=== PATIENT | female | born 1940 | race Caucasian/White ===

== ENCOUNTER 2017-06-23 10:37 | Outpatient (CLI) | payer MEDICARE ==
--- NOTE | 2017-06-23 13:32 | CT ---
CT ABDOMEN WITH AND WITHOUT IV CONTRAST: CT PELVIS WITH IV CONTRAST: HISTORY: Diarrhea. IBS. Pancreatic insufficiency. FINDINGS: The lung bases are unremarkable. The liver demonstrates decreased air attenuation, compared to the s pleen, consistent with fatty infiltration. There is a 12 mm hyperenhancing focus in the left lobe of the liver, which, in the absence of known malignancy, most likely represents a flash filling hemangi jose. Other possibilities include hypervascular primary or secondary neoplasms. No calcified gallstones are seen. The spleen, pancreas, adrenal glands, and left kidney are normal. A tiny, low density lesion in the right kidney is likely a cyst. No free air, free fluid, or lymphadenopathy is seen in the abdomen or pelvis. There are vascular taina cifications without evidence of aneurysmal dilatation of the abdominal aorta. The small bowel loops are not abnormally dilated. A uterus is present. There are degenerative changes in the spine. [place] diverticula are present. IMPRESSION: 1. A 12 mm hypervascular lesion in the liver, as discussed above. 2. Fatty liver. 3. Tiny right renal cyst. 4. Colonic diverticulosis. POS: [facility]
== END 2017-06-23 10:38 | disposition home or self-care (01) ==
LOC: SCSCT 10:37
PROVIDERS: ATTEND Internal Medicine Gastroenterology
DX: R19.7 Diarrhea, unspecified (principal); K76.9 Liver disease, unspecified; K76.0 Fatty (change of) liver, not elsewhere classified; K57.30 Diverticulosis of large intestine without perforation or abscess without bleeding
CPT/HCPCS: 74178; 82565

== ENCOUNTER 2017-06-23 14:30 | Emergency (ER) | payer MEDICARE | END 2017-06-23 15:26 | disposition home or self-care (01) | LOC: SCSER 14:30 | DX: M79.89 Other specified soft tissue disorders (principal); Z79.899 Other long term (current) drug therapy; Z79.82 Long term (current) use of aspirin; E05.90 Thyrotoxicosis, unspecified without thyrotoxic crisis or storm; G47.00 Insomnia, unspecified; R19.7 Diarrhea, unspecified; K76.9 Liver disease, unspecified; K76.0 Fatty (change of) liver, not elsewhere classified; K57.30 Diverticulosis of large intestine without perforation or abscess without bleeding | CPT/HCPCS: 74178; 82565; 99283 ==

== ENCOUNTER 2018-06-22 10:34 | Outpatient (CLI) | payer MEDICARE ==
--- NOTE | 2018-06-22 11:36 | MMO ---
Bilateral MAMMO Bilat Screen DDI+IRAJ. CLINICAL HISTORY: Patient is 77 years old and is seen for screening. The patient has the following family history of breast cancer: maternal aunt and cousin female. The patient has no personal history of cancer. VIEWS: The views performed were: bilateral craniocaudal with tomosynthesis and bilateral mediolateral oblique with tomosynthesis. FILMS COMPARED: The present examination has been compared to prior imaging studies performed at [facility] on 06/22/2017, and at [facility] on 05/26/2011, 05/26/2012, 05/27/2013, 05/29/2014, 06/06/2015 and 06/09/2016. MAMMOGRAM FINDINGS: There are scattered fibroglandular densities. There is a mass measuring 6 millimeters with spiculated margins seen in the CC view only seen in the upper-outer region of the left breast. In the right breast, there are no suspicious masses, calcifications or areas of architectural distortion. IMPRESSION: MASS IN THE LEFT BREAST REQUIRES ADDITIONAL EVALUATION. ADDITIONAL IMAGING. Recommend diagnostic mammography and focused breast ultrasound 3BTHE RESULTS OF THIS EXAM WERE SENT TO THE PATIENT.0B ACR BI-RADS Category 0 - Incomplete: Need additional imaging evaluation. [facility] [place] will notify the patient of the need for additional imaging services. MAMMOGRAPHY NOTE: 1. A negative mammogram report should not delay a biopsy if a dominant of clinically suspicious mass is present. 2. Approximately 10% to 15% of breast cancers are not detected by mammography. 3. Adenosis and dense breasts may obscure an underlying neoplasm.
== END 2018-06-22 10:35 | disposition home or self-care (01) ==
LOC: BICMAMMO 10:34
PROVIDERS: ATTEND Internal Medicine
DX: Z12.31 Encounter for screening mammogram for malignant neoplasm of breast (principal); Z80.3 Family history of malignant neoplasm of breast; N63.20 Unspecified lump in the left breast, unspecified quadrant
CPT/HCPCS: 77063; 77067

== ENCOUNTER 2018-07-26 14:03 | Outpatient (CLI) | payer MEDICARE ==
--- NOTE | 2018-07-26 14:57 | MMO ---
Left Breast MAMMO Unilat Diag DDI LT+IRAJ. CLINICAL HISTORY: Patient is 77 years old and is seen for diagnostic exam. The patient has the following family history of breast cancer: maternal aunt and cousin female. The patient has no personal history of cancer. VIEWS: The views performed were: left craniocaudal spot compression with tomosynthesis and left mediolateral with tomosynthesis. FILMS COMPARED: The present examination has been compared to prior imaging studies performed at [facility] on 06/22/2017, 06/22/2018 and 07/26/2018, and at [facility] on 06/06/2015 and 06/09/2016. MAMMOGRAM FINDINGS: There are scattered fibroglandular densities. There is a focal asymmetry measuring 5 millimeters seen in the upper-outer region of the left breast. IMPRESSION: FOCAL ASYMMETRY IN THE LEFT BREAST IS PROBABLY BENIGN. FOLLOW-UP IN 6 MONTHS IS RECOMMENDED. THE RESULTS OF THIS EXAM WERE SENT TO THE PATIENT. ACR BI-RADS Category 3 - Probably benign finding - short interval follow-up suggested. [facility] will notify the patient of the need for additional imaging services. MAMMOGRAPHY NOTE: 1. A negative mammogram report should not delay a biopsy if a dominant of clinically suspicious mass is present. 2. Approximately 10% to 15% of breast cancers are not detected by mammography. 3. Adenosis and dense breasts may obscure an underlying neoplasm.
--- NOTE | 2018-07-26 15:08 | ULT ---
LEFT BREAST ULTRASOUND: Date: 07/26/18 HISTORY: Focal asymmetry in the upper outer aspect of the left breast on screening mammography. COMPARISON: 07/26/18, 06/22/18. TECHNIQUE: Multiplanar Figueroa scale and color Doppler images were obtained in a targeted ultrasound of the upper o uter aspect of the left breast. FINDINGS: At the 12:30-1:00 position of the left breast, approximately 6-7 cm from the nipple, there is an area of shadowing without a central mass. This likely represents a tissue interface rather than a suspici ous mass and may correspond to the mammographic abnormality. No cyst identified. No solid mass seen. IMPRESSION: BIRADS Category 3 - Probably benign findings. A 6 month mammogram and ultrasound are recommended to e nsure stability. The facility will notify patient of need for additional imaging services. POS: [facility]
== END 2018-07-26 14:04 | disposition home or self-care (01) ==
LOC: BICMAMMO 14:03
PROVIDERS: ATTEND Internal Medicine
DX: N63.20 Unspecified lump in the left breast, unspecified quadrant (principal); R92.8 Other abnormal and inconclusive findings on diagnostic imaging of breast; N64.89 Other specified disorders of breast; Z80.3 Family history of malignant neoplasm of breast
CPT/HCPCS: 76642; 77065; G0279

== ENCOUNTER 2019-01-03 13:21 | Outpatient (CLI) | payer MEDICARE ==
--- NOTE | 2019-01-03 14:34 | MMO ---
Left Breast MAMMO Unilat Diag DDI LT+IRAJ. CLINICAL HISTORY: Patient is 78 years old and is seen for diagnostic exam. The patient has the following family history of breast cancer: maternal aunt and cousin female. The patient has a history of other cancer. VIEWS: The views performed were: left craniocaudal with tomosynthesis; left mediolateral oblique with tomosynthesis; and left mediolateral with tomosynthesis. FILMS COMPARED: The present examination has been compared to prior imaging studies performed at [facility] on 07/26/2018 and 01/03/2019. This study has been interpreted with the assistance of computer-aided detection. MAMMOGRAM FINDINGS: There are scattered fibroglandular densities. There is an equal density, irregular mass measuring 5 millimeters with spiculated margins seen in the left breast at 12 o'clock. IMPRESSION: MASS IN THE LEFT BREAST IS SUSPICIOUS. AN ULTRASOUND-GUIDED BREAST BIOPSY IS RECOMMENDED. RESULTS AND RECOMMENDATIONS DISCUSSED WITH THE PATIENT AND QUESTIONS ANSWERED. THE RESULTS OF THIS EXAM WERE SENT TO THE PATIENT. ACR BI-RADS Category 4 - Suspicious abnormality - biopsy should be considered MAMMOGRAPHY NOTE: 1. A negative mammogram report should not delay a biopsy if a dominant of clinically suspicious mass is present. 2. Approximately 10% to 15% of breast cancers are not detected by mammography. 3. Adenosis and dense breasts may obscure an underlying neoplasm. Reported by: RIZWANA DAS MD Electonically Signed: [id number]
--- NOTE | 2019-01-03 16:14 | ULT ---
LIMITED LEFT BREAST ULTRASOUND: 01/03/2019 PROVIDED CLINICAL HISTORY: Abnormal mammogram. FINDINGS: Limited sonographic interrogation of the left breast was performed at the 12 to 2 o'clock positions i n the region of mammographic concern. At the 12 o'clock position there is an angular, irregular, hypoechoic mass with posterior shadowing, measuring about 5 mm in greatest dimension. This corresponds with the mammographic finding. IMPRESSION: BI-RADS category 4 - suspicious abnormality. Ultrasound guided biopsy is recommended. Results and recommendations discussed with the patient and q uestions answered. POS: OFF
== END 2019-01-03 13:22 | disposition home or self-care (01) ==
LOC: BICMAMMO 13:21
PROVIDERS: ATTEND Internal Medicine
DX: R92.8 Other abnormal and inconclusive findings on diagnostic imaging of breast (principal); N63.22 Unspecified lump in the left breast, upper inner quadrant
CPT/HCPCS: 76642; 77065; G0279

== ENCOUNTER → 2019-01-14 | Day surgery (SDC) | payer MEDICARE ==
--- NOTE | 2019-01-14 15:10 | MMO ---
Left Breast MAMMO Unilat Diag DDI LT. CLINICAL HISTORY: Patient is 78 years old and is seen for diagnostic exam. The patient has the following family history of breast cancer: maternal aunt and cousin female. The patient has a history of other cancer. The patient has a history of left Ultrasound Guided Core Biopsy in January,. VIEWS: The views performed were: left craniocaudal and left mediolateral. FILMS COMPARED: The present examination has been compared to prior imaging studies performed at [facility] on 07/26/2018 and 01/03/2019. This study has been interpreted with the assistance of computer-aided detection. MAMMOGRAM FINDINGS: There is a biopsy clip seen in the left breast. IMPRESSION: BIOPSY CLIP IN THE LEFT BREAST IS CONFIRMED UTILIZING POST PROCEDURE MAMMOGRAM. THE RESULTS OF THIS EXAM WERE SENT TO THE PATIENT. MAMMOGRAPHY NOTE: 1. A negative mammogram report should not delay a biopsy if a dominant of clinically suspicious mass is present. 2. Approximately 10% to 15% of breast cancers are not detected by mammography. 3. Adenosis and dense breasts may obscure an underlying neoplasm. Reported by: ARLET SANTANA MD Electonically Signed: [id number]
--- NOTE | 2019-01-14 15:23 | ULT ---
US Breast Bx US Guided History: Breast mass Comparison: None. Findings: Patient was brought to the ultrasound suite. All questions were answered. Informed consent was obtained. Timeout performed. Patient's left breast was prepped and draped in normal sterile fashion. Using ultrasound guidance lef t breast mass at 1:00 was visualized. After adequate anesthesia, a total of (4) 14-gauge 18 mm cores were obtained. Patient tolerated the procedure well without complication. Clip was placed in adequate position on post clip mammography. Impression: Technically successful ultrasound-guided left breast mass biopsy.
== END ==
LOC: BICULT 13:09
PROVIDERS: ATTEND Internal Medicine
PROC: 0H9U3ZX Drainage of Left Breast, Percutaneous Approach, Diagnostic (ICD-10-PCS; principal; 2019-01-14)
DX: D05.12 Intraductal carcinoma in situ of left breast (principal)
CPT/HCPCS: 19083; 88305; 88341; 88342

== ENCOUNTER 2019-02-22 06:15 | Outpatient (CLI) | payer MEDICARE ==
[2019-02-22 12:28] LABS: #Basophils 0.1 thou/uL (0.0-0.2); #Eosinphils 0.1 thou/uL (0.0-0.7); #Lymphocytes 3.8 thou/uL (1.20-3.40); #Monocytes 0.8 thou/uL (0.11-0.59); %Basophils 1.3 % (0.0-1.0); %Eosinophils 0.8 % (0.0-10.0); %Lymphocytes 35.2 % (21.0-51.0); %Monocytes 7.2 % (0.0-10.0); %Neutrophils 55.5 % (42.0-75.0); Hemoglobin 13.8 g/dL (12.0-16.0); Mean Corpuscular HGB CONC 32.8 g/dL (32.0-36.0); Mean Corpuscular Hemoglobin 33.5 pg (27.0-31.0); Mean Platelet Volume 8.2 fL (7.4-10.4); Platelet Count 175 thou/uL (130-400); RBC Distribution Width 12.4 % (11.5-14.5); Red Blood Cell (RBC) Count 4.13 mill/uL (4.20-5.40); White Blood Cell (WBC) Count 10.8 thou/uL (4.8-10.8)
--- NOTE | 2019-02-22 12:38 | RAD ---
EXAM: Chest 2 views: HISTORY: Preoperative radiograph COMPARISON: None. FINDINGS: There is a normal-sized cardiomediastinal silhouette. There is no evidence of consolidation, mass, or pleural effusion. The bones are unremarkable. IMPRESSION: No evidence of acute cardiopulmonary disease
[2019-02-22 12:54] LABS: Anion Gap 11 mmol/L (10-20); BUN (Urea Nitrogen) 20 mg/dL (9.8-20.1); Calc. Creatinine Clearance 0 mL/min (70-130); Calcium 9.4 mg/dL (7.8-10.44); Carbon Dioxide 31 mmol/L (23-31); Chloride 103 mmol/L (98-107); Estimated GFR-MDRD 65; Glucose 118 mg/dL (83-110); Potassium 3.5 mmol/L (3.5-5.1); Sodium 141 mmol/L (136-145)
== END 2019-02-22 06:16 | disposition home or self-care (01) ==
LOC: LABBT 06:15
PROVIDERS: ATTEND Specialist
DX: Z01.818 Encounter for other preprocedural examination (principal); C50.412 Malignant neoplasm of upper-outer quadrant of left female breast
CPT/HCPCS: 71046; 80048; 85025; 93005; 93010

== ENCOUNTER 2019-03-01 06:35 | Day surgery (SDC) | payer MEDICARE ==
[2019-02-22 11:39] VITALS: BMI 27.8
--- NOTE | 2019-03-01 09:20 | MMO ---
Needle localization left breast mass mammographic guided HISTORY: Left breast cancer. FINDINGS: After explaining the procedure and answering all questions, the localization clip and mass at the superior aspect of left breast was again visualized. Sterile technique, buffered local anesthesia, mammographic guidance, and a superior approach were used to carefully advance a 19-gauge Franklin needle and wire to the posterior margin of the mass containing the localization clip. The center of the mass lies approximately 1.9 cm from the tip of the needle. Position confirmed with mammography. Patient tolerated the procedure well and was transferred to day surgery in good condition. IMPRESSION: Technically successful needle localization left breast mass.
[2019-03-01] MEDS ORDERED: Dexamethasone 20 MG/5 ML VIAL ONE (10:33)
[2019-03-01] MEDS ORDERED: ePHEDrine/0.9% NaCl/PF SYRINGE 50 mg/10 ml ONE (10:33)
[2019-03-01] MEDS ORDERED: Lidocaine 1% PF 5 ML VIAL ONE (10:33)
[2019-03-01] MEDS ORDERED: PROPOFOL 200 MG/20 ML VIAL ONE (10:33)
[2019-03-01] MEDS ORDERED: Ondansetron PF 4 MG/2 ML Vial ONE (10:33)
[2019-03-01] MEDS ORDERED: Bupivacaine 0.25% HCL 30 ML VIAL ONE (11:49)
[2019-03-01] MEDS ORDERED: Lidocaine 1% w/Epinephrine 1:100K 20 ML VIAL ONE (11:49)
[2019-03-01] MEDS ORDERED: Isosulfan Blue 50 MG/5 ML VIAL ONE (11:58)
[2019-03-01] MEDS ORDERED: Fentanyl 100 MCG/2 ML VIAL ONE (12:36)
[2019-03-01] MEDS ORDERED: Ketorolac Tromethamine 30 MG/ML VIAL ONE (12:47)
--- NOTE | 2019-03-01 13:51 | NM ---
NUCLEAR MEDICINE LYMPHOSCINTIGRAPHY: HISTORY: Left breast cancer. TECHNIQUE: The patient was administered a total of 395 microcuries of technetium 99m sulfur colloid. Four separa te aliquots at the 12:00 o'clock, 3:00 o'clock, 6:00 o'clock and 9:00 o'clock positions were performed. FINDINGS: Immediate, one hour, two hour and three hour images do not demonstrate a sentinel lymph node. IMPRESSION: Nonvisualization of a sentinel lymph node despite three hours of imaging. Transcribed Date/Time: 03/01/2019 2:11 PM
--- NOTE | 2019-03-01 14:49 | MMO ---
MAMMO Surgial Specimen HISTORY: Left breast cancer FINDINGS: The specimen demonstrates soft tissue along with a biopsy clip and the guidewire.
--- NOTE | 2019-03-02 11:14 | OP ---
DATE OF PROCEDURE: 03/01/2019 PREOPERATIVE DIAGNOSIS: Left breast cancer. POSTOPERATIVE DIAGNOSIS: Left breast cancer. PROCEDURE PERFORMED: Left breast mammographic needle localized lumpectomy, sentinel lymph node biopsy (resection of additional lumpectomy margin). ANESTHESIA: General endotracheal. INDICATIONS: The patient is a 78-year-old white female. She was recently diagnosed with a low-grade fairly small breast cancer in the upper outer quadrant of the left breast. She is taken to the operating room at this time for breast conservation surgery. Preoperative lymphoscintigraphy was performed, which did not reveal evidence of axillary lymph nodes. DESCRIPTION OF OPERATION: Informed consent was obtained. The patient was taken to the operating room, where general anesthesia was obtained with the patient in supine position. Left breast and axilla were prepped with ChloraPrep including the localizing needle that had been placed by Radiology. The needle was placed in a [id number] fashion. The cancer had been recognized previously at about the 1 o'clock radian of the left breast. With 3 mL of isosulfan blue was infiltrated in the periareolar subdermal tissue and massaged for about 5 minutes. Attention was then turned to the axilla. A transverse low axillary incision was created and dissection was carried through skin and subcutaneous tissue. Although, a sentinel lymph node had not been clearly identified with lymphoscintigraphy, I was able to detect a couple of areas of increased radioactivity within the left axilla. The first one was identified, did have some blue staining associated with this. The second one did not. These were each carefully dissected circumferentially and all investing lymphatics were ligated between clamps and silk ties. The sentinel lymph nodes were removed uneventfully and passed off the field. There were no other areas of increased radioactivity within the left axilla. Hemostasis was meticulously ensured. The wound was closed in layers with 3-0 and 4-0 Monocryl. An additional local anesthetic was instilled during the course of closure. Attention was turned to the left breast. Ultrasound was used to map the course of the localizing needle and discern the area of the malignancy relative to the needle. When this was clearly marked on the skin, local anesthetic was infiltrated using 0.25% Marcaine with epinephrine and a transverse incision was created based on the needle entry site. Dissection was carried through skin and subcutaneous tissue. About a centimeter into the breast, the flaps were raised superiorly and inferiorly using electrocautery. The breast tissue was grasped with Allis clamps. It was carefully dissected to give a wide margin around the localizing wire and ultrasound was utilized intraoperatively to check margins. The specimen was removed intact. It was tagged with sutures for orientation and passed off the field for specimen mammography. This showed that the biopsy clip and the density were present within the biopsy specimen. I was concerned that the inferior margin might be close in light of the location of the wire after the specimen was removed. I therefore obtained an additional inferior margin of nearly 1 cm. This was also tagged for orientation and passed off the field. Meticulous hemostasis was obtained with electrocautery. The wound was irrigated and all irrigant was removed. The wound was closed in layers with 3-0 and 4-0 Monocryl suture. Dermabond was placed external to both the breast and axillary incisions. There were no complications and blood loss was minimal. The patient tolerated the procedure well and was taken to recovery room in stable condition. Job ID: [id number]
== END 2019-03-01 17:04 | disposition home or self-care (01) ==
LOC: SDC 06:35
PROVIDERS: ATTEND Specialist
PROC: 0HBU0ZZ Excision of Left Breast, Open Approach (ICD-10-PCS; principal; 2019-03-01)
PROC: 07B60ZX Excision of Left Axillary Lymphatic, Open Approach, Diagnostic (ICD-10-PCS; 2019-03-01)
DX: C50.412 Malignant neoplasm of upper-outer quadrant of left female breast (principal); E07.9 Disorder of thyroid, unspecified; Z17.0 Estrogen receptor positive status [ER+]; Z79.82 Long term (current) use of aspirin; Z79.899 Other long term (current) drug therapy; Z88.1 Allergy status to other antibiotic agents; Z88.8 Allergy status to other drugs, medicaments and biological substances; Z91.040 Latex allergy status
CPT/HCPCS: 19281; 19301; 38525; 38900; 76098; 78195; 88307; 88342; A9541; Q9968; J0131; J0690; J1100; J1885; J2001; J2405; J2704; J3010; S0020

== ENCOUNTER 2019-08-10 14:21 | Outpatient (CLI) | payer MEDICARE ==
--- NOTE | 2019-08-10 15:09 | MMO ---
Bilateral MAMMO Bilat Diag DDI+IRAJ. CLINICAL HISTORY: Patient is 79 years old and is seen for diagnostic exam. The patient has the following family history of breast cancer: maternal aunt and cousin female. 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 The patient has a history of left Excisional Biopsy in February, - malignant and left Ultrasound Guided Core Biopsy in January,. VIEWS: The views performed were: bilateral craniocaudal with tomosynthesis; bilateral mediolateral oblique with tomosynthesis; and bilateral mediolateral with tomosynthesis. FILMS COMPARED: The present examination has been compared to prior imaging studies performed at [facility] on 07/26/2018, 01/03/2019 and 01/14/2019. This study has been interpreted with the assistance of computer-aided detection. MAMMOGRAM FINDINGS: There are scattered fibroglandular densities. Finding 1: There are benign appearing calcifications seen in both breasts. Finding 2: There are post operative changes seen in the left breast. IMPRESSION: FINDING 1: CALCIFICATIONS IN BOTH BREASTS ARE BENIGN. FINDING 2: POST OPERATIVE CHANGES IN THE LEFT BREAST ARE PROBABLY BENIGN. FOLLOW-UP IN 6 MONTHS IS RECOMMENDED. THE RESULTS OF THIS EXAM WERE SENT TO THE PATIENT. ACR BI-RADS Category 3 - Probably benign finding - short interval follow-up suggested. [facility] will notify the patient of the need for additional imaging services. MAMMOGRAPHY NOTE: 1. A negative mammogram report should not delay a biopsy if a dominant of clinically suspicious mass is present. 2. Approximately 10% to 15% of breast cancers are not detected by mammography. 3. Adenosis and dense breasts may obscure an underlying neoplasm. Reported by: ARLET SANTANA MD Electonically Signed: [id number]
== END 2019-08-10 14:22 | disposition home or self-care (01) ==
LOC: BICMAMMO 14:21
PROVIDERS: ATTEND Internal Medicine Hematology & Oncology
DX: C50.212 Malignant neoplasm of upper-inner quadrant of left female breast (principal); R92.1 Mammographic calcification found on diagnostic imaging of breast; Z98.890 Other specified postprocedural states
CPT/HCPCS: 77066; G0279

== ENCOUNTER 2020-12-28 13:29 | Outpatient (CLI) | payer MEDICARE | END 2020-12-28 13:30 | disposition home or self-care (01) | LOC: BICMAMMO 13:29 | PROVIDERS: ATTEND Internal Medicine Hematology & Oncology | DX: Z08 Encounter for follow-up examination after completed treatment for malignant neoplasm (principal); E55.9 Vitamin D deficiency, unspecified; Z85.3 Personal history of malignant neoplasm of breast | CPT/HCPCS: 77066; G0279 ==

== ENCOUNTER 2022-01-01 12:58 | Outpatient (CLI) | payer MEDICARE | END 2022-01-01 12:59 | disposition home or self-care (01) | LOC: BICMAMMO 12:58 | PROVIDERS: ATTEND Specialist | DX: Z08 Encounter for follow-up examination after completed treatment for malignant neoplasm (principal); Z85.3 Personal history of malignant neoplasm of breast | CPT/HCPCS: 77066; G0279 ==

== ENCOUNTER 2022-07-11 10:57 | Outpatient (CLI) | payer MEDICARE | END 2022-07-11 10:58 | disposition home or self-care (01) | LOC: BICMAMMO 10:57 | PROVIDERS: ATTEND Internal Medicine Hematology & Oncology | DX: C50.212 Malignant neoplasm of upper-inner quadrant of left female breast (principal); T38.6X5A Adverse effect of antigonadotrophins, antiestrogens, antiandrogens, not elsewhere classified, initial encounter; M85.80 Other specified disorders of bone density and structure, unspecified site | CPT/HCPCS: 77080 ==

== ENCOUNTER 2023-01-05 10:57 | Outpatient (CLI) | payer MEDICARE | END 2023-01-05 10:58 | disposition home or self-care (01) | LOC: BICMAMMO 10:57 | PROVIDERS: ATTEND Specialist | DX: Z12.31 Encounter for screening mammogram for malignant neoplasm of breast (principal); Z80.3 Family history of malignant neoplasm of breast; Z85.3 Personal history of malignant neoplasm of breast; Z98.890 Other specified postprocedural states | CPT/HCPCS: 77063; 77067 ==

== ENCOUNTER 2024-01-12 12:06 | Outpatient (CLI) | payer MEDICARE | END 2024-01-12 12:07 | disposition home or self-care (01) | LOC: BICMAMMO 12:06 | PROVIDERS: ATTEND Specialist | DX: Z12.31 Encounter for screening mammogram for malignant neoplasm of breast (principal); Z80.3 Family history of malignant neoplasm of breast; Z85.3 Personal history of malignant neoplasm of breast; Z98.890 Other specified postprocedural states | CPT/HCPCS: 77063; 77067 ==